=== PATIENT | male | born 1955 | race Caucasian/White ===

== ENCOUNTER 2016-10-25 14:33 | Observation (INO) | payer MEDICAID ==
[~2016-10-25] VITALS: Ht 180.3 cm; Wt 80.0 kg
[2016-10-25 14:40] VITALS: BP 111/69; PULSE 111; RESP 16; TEMP 97.9; O2SAT 96
[2016-10-25 15:10] VITALS: BP 98/63; PULSE 88; RESP 16; TEMP 97.9; O2SAT 97
[2016-10-25 15:12] LABS: AUTOMATED NEUTROPHIL # 3.3 TH/MM3 (1.8-7.7); BASOPHIL % 0.7 % (0.0-2.0); EOSINOPHIL # 0.1 TH/MM3 (0-0.4); EOSINOPHIL % 1.8 % (0.0-4.0); HEMATOCRIT 40.5 % (39.0-51.0); HEMO FLAGS DIFF FINAL; LYMPH % 33.9 % (9.0-44.0); MEAN CELL VOLUME 92.4 FL (80.0-100.0); MEAN CORPUSCULAR HEMOGLOBIN 31.3 PG (27.0-34.0); MEAN CORPUSCULAR HGB CONC 33.8 % (32.0-36.0); MONO % 8.3 % (0.0-8.0); NEUT % 55.3 % (16.0-70.0); PLATELET COUNT 265 TH/MM3 (150-450); RED BLOOD COUNT 4.38 MIL/MM3 (4.50-5.90); RED CELL DISTRIBUTION WIDTH 14.7 % (11.6-17.2); WHITE BLOOD COUNT 5.9 TH/MM3 (4.0-11.0)
[2016-10-25] MEDS ORDERED: SODIUM CHLOR 0.9% 1000 ML INJ 1,000 ML IV ONE (15:22)
--- NOTE | 2016-10-25 15:23 | PD ---
HPI Chief Complaint: Respiratory Symptoms Time Seen by Provider: 15:23 Travel History International Travel<30 days: No Contact w/Intl Traveler<30days: No Traveled to known affect area: No History of Present Illness HPI 61-year-old male with history of hypertension and hypothyroidism presents to the emergency department for evaluation of lightheadedness. The patient states that for the past 2-3 days he has experienced lightheadedness, generalized weakness with shortness of breath and chest pressure. States that the symptoms are exacerbated by standing and improved by sitting still. States that he feels as though he is going to pass out when he stands up. He states that he doesn't have any chest pain but feels there is a slight pressure whenever he stands up and experiences the shortness of breath. He denies nausea, vomiting, diaphoresis, numbness or tingling, one-sided weakness, headache, vision changes , cough or cold symptoms. Denies any history of heart disease or CA. Last stress test was many years ago. Patient has been smoking cigarettes for 40 years. Patient is here visiting a friend from [facility]. No other complaints. [facility] Past Medical History Hypertension: Yes Thyroid Disease: Yes (hypothyroidism) Social History Tobacco Use: Yes Allergies-Medications (Allergen,Severity, Reaction): Coded Allergies: No Known Allergies (Unverified , 10/25/16) Reported Meds & Prescriptions Reported Meds & Active Scripts Active Reported Levothyroxine (Levothyroxine Sodium) 25 Mcg Tab 25 Mcg PO DAILY Lisinopril 5 Mg Tab 5 Mg PO DAILY Review of Systems Except as stated in HPI: all other systems reviewed are Neg Physical Exam Narrative GENERAL: Well-nourished and well-developed pleasant male patient in no acute distress. SKIN: Warm and dry. HEAD: Normocephalic and atraumatic. EYES: No injection, drainage, or hyphema noted. PERRLA. EOMI. ENT: No nasal drainage noted. Oropharynx is clear. NECK: Supple and the trachea is midline. CARDIOVASCULAR: Regular rate and rhythm. RESPIRATORY: Breath sounds are equal bilaterally with no accessory muscle use, wheezing, rhonchi, or crackles. GASTROINTESTINAL: Abdomen is soft, non-tender, and nondistended. MUSCULOSKELETAL: No obvious deformities, swelling, cyanosis, or ecchymosis is present throughout the upper and lower extremities. Patient has full range of motion without any signs of neurovascular compromise. Strength 5/5 upper and lower extremities and equal bilaterally. NEUROLOGICAL: Awake, alert, and oriented. Normal speech and gait. [id number] test is normal. Rapid alternating movements are normal. Finger to nose test is normal. Cranial nerves are grossly intact. Data Data Last Documented VS Vital Signs Date Time Temp Pulse Resp B/P Pulse Ox O2 Delivery O2 Flow Rate FiO2 10/25/16 17:06 71 16 114/65 97 Room Air 10/25/16 15:10 97.9 Orders Electrocardiogram (10/25/16 14:43) Complete Blood Count With Diff (10/25/16 14:43) Basic Metabolic Panel (Bmp) (10/25/16 14:43) Ckmb (Isoenzyme) Profile (10/25/16 14:43) Troponin I (10/25/16 14:43) Chest, Single Ap (10/25/16 14:43) Sodium Chloride 0.9% Flush (Ns Flush) (10/25/16 15:30) Sodium Chlor 0.9% 1000 Ml Inj (Ns 1000 M (10/25/16 15:22) Ct Brain W/O Iv Contrast(Rout) (10/25/16 15:23) CKMB (10/25/16 14:57) CKMB% (10/25/16 14:57) D-Dimer (10/25/16 15:30) Prothrombin Time / Inr (Pt) (10/25/16 15:30) Act Partial Throm Time (Ptt) (10/25/16 15:30) Sodium Chlor 0.9% 1000 Ml Inj (Ns 1000 M (10/25/16 16:55) Admit Order (Ed Use Only) (10/25/16 17:28) Diet Heart Healthy (10/25/16 Dinner) Aspirin Chew (Aspirin Chew) (10/25/16 17:30) Labs Laboratory Tests Test 10/25/16 10/25/16 14:57 15:30 White Blood Count 5.9 TH/MM3 Red Blood Count 4.38 MIL/MM3 Hemoglobin 13.7 GM/DL Hematocrit 40.5 % Mean Corpuscular Volume 92.4 FL Mean Corpuscular Hemoglobin 31.3 PG Mean Corpuscular Hemoglobin 33.8 % Concent Red Cell Distribution Width 14.7 % Platelet Count 265 TH/MM3 Mean Platelet Volume 9.7 FL Neutrophils (%) (Auto) 55.3 % Lymphocytes (%) (Auto) 33.9 % Monocytes (%) (Auto) 8.3 % Eosinophils (%) (Auto) 1.8 % Basophils (%) (Auto) 0.7 % Neutrophils # (Auto) 3.3 TH/MM3 Lymphocytes # (Auto) 2.0 TH/MM3 Monocytes # (Auto) 0.5 TH/MM3 Eosinophils # (Auto) 0.1 TH/MM3 Basophils # (Auto) 0.0 TH/MM3 CBC Comment DIFF FINAL Differential Comment Sodium Level 135 MEQ/L Potassium Level 4.0 MEQ/L Chloride Level 100 MEQ/L Carbon Dioxide Level 24.4 MEQ/L Anion Gap 11 MEQ/L Blood Urea Nitrogen 15 MG/DL Creatinine 1.35 MG/DL Estimat Glomerular Filtration 54 ML/MIN Rate Random Glucose 98 MG/DL Calcium Level 8.7 MG/DL Total Creatine Kinase 132 U/L Creatine Kinase MB 2.0 NG/ML Troponin I LESS THAN 0.02 NG/ML Prothrombin Time 10.0 SEC Prothromb Time International 0.9 RATIO Ratio Activated Partial 27.3 SEC Thromboplast Time D-Dimer Quantitative (PE/DVT) 0.21 MG/L [facility] Medical Decision Making Medical Screen Exam Complete: Yes Emergency Medical Condition: Yes Differential Diagnosis Orthostatic hypotension versus dehydration versus ACS versus anginal equivalent versus PE Narrative Course 61-year-old male presents to the emergency department for evaluation of lightheadedness, presyncopal symptoms, chest pressure and shortness of breath for 2-3 days aggravated with standing up. Patient is afebrile. He is initially tachycardic with a heart rate of 111 bpm. Blood pressure is initially normal 111/69 but now a little low at 98/63. EKG shows sinus rhythm with no acute ST elevations or depressions, there is early repolarization noted. IV access is obtained, labs and been drawn and sent. Patient is placed on cardiac telemetry and pulse oximetry monitoring. CBC is unremarkable. BMP shows mild renal insufficiency with a creatinine of 1.35, GFR 54. No prior for comparison. Troponin is less than 0.02. Coags are unremarkable. D-dimer is negative. Chest x-ray is negative for any acute abnormalities. Patient reassessed after 2 L of fluid and reports great improvement of symptoms. States that he no longer has any lightheadedness. His blood pressure has normalized to 114/72. Presyncopal symptoms likely secondary to mild dehydration. Initially patient was agreeable to staying and chest pain center however has now changed his mind. I did discuss with him that should he have worsening of symptoms such as chest pain, shortness breath, difficulty breathing, lightheadedness, etc. he should return immediately to the emergency department. Patient verbalizes understanding and agreement with treatment plan. I discussed the case with my attending physician Dr. Strong who is aware of the patients history, physical examination findings, and treatment plan. Diagnosis Primary Impression: Chest pain Qualified Code: R07.9 - Chest pain, unspecified type Additional Impression: Mild dehydration Referrals: Primary Care Physician Patient Instructions: Chest Pain (ED), Dehydration (ED), General Instructions Additional Instructions: Drink plenty of fluids. Follow-up with your Primary Care Physician. Return to the ED for any acute worsening of symptoms such as chest pain, shortness of breath, lightheadedness. Med/Other Pt SpecificInfo: No Change to Meds Disposition: 01 DISCHARGE HOME Condition: Stable Kisha Cisneros Oct 25, 2016 15:23
[2016-10-25 15:25] LABS: ANION GAP 11 MEQ/L (5-15); BICARBONATE 24.4 MEQ/L (21.0-32.0); BLOOD UREA NITROGEN 15 MG/DL (7-18); CHLORIDE 100 MEQ/L (98-107); GLOMERULAR FILTRATION RATE 54 ML/MIN (>89); SODIUM (NA) 135 MEQ/L (136-145)
[2016-10-25 15:28] LABS: CREATINE KINASE 132 U/L (39-308)
[2016-10-25] MEDS ORDERED: LISI-519 PO (15:28)
[2016-10-25] MEDS ORDERED: LEVO25TA4 PO (15:28)
[2016-10-25 15:30] VITALS: BP_SYST 92; BP_SYST 93; BP_SYST 94; BP_DIAS 61; BP_DIAS 62; BP_DIAS 63; RESP 18; RESP 22
[2016-10-25] MEDS ORDERED: SODIUM CHLORIDE 0.9% FLUSH 10 ML FLUSH IVF PRN (15:30)
--- NOTE | 2016-10-25 15:40 | RADRPT ---
EXAM DATE/TIME: 10/25/2016 14:58 [facility] COMPARISON: No previous studies available for comparison. INDICATIONS : Dizziness and shortness of breath. MEDICAL HISTORY : None. SURGICAL HISTORY : None. ENCOUNTER: Initial ACUITY: 1 day PAIN SCORE: 0/10 LOCATION: Bilateral chest FINDINGS: A single view of the chest demonstrates the lungs to be symmetrically aerated without evidence of mas s, infiltrate or effusion. The cardiomediastinal contours are unremarkable. Osseous structures are intact. CONCLUSION: No acute disease. Jose Tubbs MD on October 25, 2016 at 15:38 Board Certified Radiologist. This report was verified electronically.
[2016-10-25 16:24] LABS: APTT (PATIENT) 27.3 SEC (24.3-30.1); INTERNATIONAL NORMALIZED RATIO 0.9 RATIO
--- NOTE | 2016-10-25 16:49 | RADRPT ---
EXAM DATE/TIME: 10/25/2016 16:29 [facility] COMPARISON: No previous studies available for comparison. INDICATIONS : Dyspnea and dizziness RADIATION DOSE: 35.63 CTDIvol (mGy) MEDICAL HISTORY : None SURGICAL HISTORY : None. ENCOUNTER: Initial ACUITY: 1 day PAIN SCALE: 0/10 LOCATION: cranial TECHNIQUE: Multiple contiguous axial images were obtained of the head. Using automated exposure control and adj ustment of the mA and/or kV according to patient size, radiation dose was kept as low as reasonably a chievable to obtain optimal diagnostic quality images. FINDINGS: CEREBRUM: The ventricles are normal for age. No evidence of midline shift, mass lesion, hemorrhage or acute in farction. No extra-axial fluid collections are seen. POSTERIOR FOSSA: The cerebellum and brainstem are intact. The 4th ventricle is midline. The cerebellopontine angle i s unremarkable. EXTRACRANIAL: The visualized portion of the orbits is intact. SKULL: The calvaria is intact. No evidence of skull fracture. CONCLUSION: Negative exam. Jonathan Pacheco MD on October 25, 2016 at 16:47 Board Certified Radiologist. This report was verified electronically.
[2016-10-25] MEDS ORDERED: SODIUM CHLOR 0.9% 1000 ML INJ 1,000 ML IV SCH (16:55)
[2016-10-25 17:06] VITALS: BP 114/65; PULSE 71; RESP 16; O2SAT 97
[2016-10-25] MEDS ORDERED: ASPIRIN 81 MG CHEW TAB CHEW ONE (17:30)
[2016-10-25 18:29] VITALS: BP 133/68; PULSE 70; RESP 18; O2SAT 99
--- NOTE | 2016-10-26 14:47 | EKG ---
Date Performed: 10/25/2016 Time Performed: 14:49:21 PTAGE: 61 years EKG: Sinus rhythm NORMAL ECG NO PREVIOUS TRACING DOCTOR: Ozzie Morocho Interpretating Date/Time 10/26/2016 14:41:49
== END 2016-10-25 18:47 | disposition left against medical advice (07) ==
LOC: NEPC 14:33 → NEDA 17:30
PROVIDERS: ADMIT Internal Medicine Cardiovascular Disease; ATTEND Internal Medicine Cardiovascular Disease
DX: R07.9 Chest pain, unspecified (principal); E86.0 Dehydration; I10 Essential (primary) hypertension; E03.9 Hypothyroidism, unspecified; F17.210 Nicotine dependence, cigarettes, uncomplicated
CPT/HCPCS: 70450; 71010; 80048; 82550; 82552; 84484; 85025; 85379; 85610; 85730; 93005; G0378; J7030